=== PATIENT | male | born 1960 | race Caucasian/White ===

== ENCOUNTER 2019-07-07 06:00 | Outpatient (RCR) | payer OTHER, SELFPAY | END 2019-08-06 00:01 | LOC: APT 06:00 | PROVIDERS: Family Provider Nurse Practitioner; Visit Provider Orthopaedic Surgery | DX: Z47.1 Aftercare following joint replacement surgery (principal); Z96.641 Presence of right artificial hip joint | CPT/HCPCS: 97110 ×2; 97140 ×2 ==

== ENCOUNTER 2019-08-07 06:00 | Outpatient (RCR) | payer SELFPAY | END 2019-09-06 23:59 | disposition home or self-care (01) | LOC: APT 06:00 | PROVIDERS: Family Provider Nurse Practitioner; PCP Nurse Practitioner; Visit Provider Orthopaedic Surgery | DX: Z47.1 Aftercare following joint replacement surgery (principal); Z96.641 Presence of right artificial hip joint ==

== ENCOUNTER → 2019-08-26 10:58 | Outpatient (BNVA) | payer BC, SELFPAY | PROVIDERS: Family Provider Nurse Practitioner; PCP Nurse Practitioner; Visit Provider Orthopaedic Surgery | DX: Z48.89 Encounter for other specified surgical aftercare (principal); Z47.1 Aftercare following joint replacement surgery; Z96.641 Presence of right artificial hip joint; M19.90 Unspecified osteoarthritis, unspecified site; Z11.59 Encounter for screening for other viral diseases; Z79.899 Other long term (current) drug therapy; Z11.1 Encounter for screening for respiratory tuberculosis; M25.579 Pain in unspecified ankle and joints of unspecified foot; M79.10 Myalgia, unspecified site | CPT/HCPCS: 36415; 73502; 82085; 82652; 86480; 99204 ==

== ENCOUNTER → 2019-08-26 14:49 | Outpatient (BNVA) | payer BC, SELFPAY | PROVIDERS: Family Provider Nurse Practitioner; PCP Nurse Practitioner; Referring Provider Nurse Practitioner; Visit Provider Internal Medicine Rheumatology | DX: Z11.59 Encounter for screening for other viral diseases (principal); Z79.899 Other long term (current) drug therapy; M19.90 Unspecified osteoarthritis, unspecified site; M79.10 Myalgia, unspecified site | CPT/HCPCS: 85025 ==

== ENCOUNTER 2019-09-05 08:21 | Outpatient (CLI) | payer BC, SELFPAY ==
--- NOTE | 2019-09-05 08:28 | XR_ITS ---
WS: [id number] LEFT HAND: 3 VIEW(S) TECHNIQUE: PA, oblique and lateral. HISTORY: INFLAMMATORY ARTHRITIS COMPARISON: None available. No acute fracture or dislocation. Moderate joint space narrowing involving the third metacarpal phalangeal joint. Small erosions at the joint space. There is very slight subluxation at the third metacarpophalangeal joint. Mild narrowing of the interphalangeal joints. Erosions in the ulnar styloid. Mild narrowing of the distal radial ulnar joint. Narrowing of the radi ocarpal joint. Additional narrowing of the carpal rows. Widening of the scapholunate interval consistent with ligamentous tear or widening measures 5.7 mm. XR/XR hand LT min 3V* [id number] IMPRESSION: 1. Erosive changes and mild subluxation involving the third metacarpophalangea l joint suggesting inflammatory arthritis. 2. Additional distal ulnar styloid erosions. 3. Mild narrowing of the carpus articulations. 4. Scapholunate ligament tear.
--- NOTE | 2019-09-05 08:28 | XR_ITS ---
WS: [id number] RIGHT HAND: 3 VIEW(S) TECHNIQUE: PA, oblique and lateral. HISTORY: INFLAMMATORY ARTHRITIS COMPARISON: None available. No acute fracture or dislocation. Joint space narrowing with subluxations involving the second and third metatarsophalangeal joints. Hy pertrophic bone formation at the metatarsal heads and are also lucencies consistent with erosions and joint space narrowing. Additional mild joint space narrowing at the first metacarpal phalangeal join t and at the first IP joint. Mild narrowing at the proximal interphalangeal joints. Small erosion involving the ulnar styloid. Small erosions involving the scaphoid. XR/XR hand RT min 3V* [id number] IMPRESSION: 1. Joint space narrowing, subluxation and erosions involving the second and th ird metacarpal phalangeal joints, likely inflammatory arthropathy. Additional p roliferative bone formation which is not typically seen with rheumatoid. 2. Ulnar styloid and scaphoid erosions.
--- NOTE | 2019-09-05 08:28 | XR_ITS ---
WS: [id number] CHEST 2 VIEWS HISTORY: INFLAMMATORY ARTHRITIS COMPARISON: 05/16/2019 Lungs: Mild hyperinflation and changes of emphysema. Interstitial thickening is stable throughout bot h lungs. No mass or pulmonary nodule. Cardiac size: Normal. Mediastinum/Aorta: Mild atherosclerosis aorta. Bones: Normal. XR/XR chest 2V* [id number] IMPRESSION: 1. Mild chronic emphysema. 2. No acute cardiopulmonary disease.
--- NOTE | 2019-09-05 08:30 | XR_ITS ---
WS: [id number] LEFT FOOT: 3 VIEW(S) TECHNIQUE: PA, oblique and lateral. HISTORY: INFLAMMATORY ARTHRITIS COMPARISON: None available. No acute fracture or dislocation. Mild hallux valgus deformity. Small erosions involving the first metatarsal head. Mild narrowing of the first metatarsophalangeal j oint space. No additional metatarsal head erosions. Several hammertoe deformities. No subluxations. XR/XR foot LT min 3V* [id number] IMPRESSION: Small erosions involving the first metatarsophalangeal joint articular surfaces . Early changes of rheumatoid arthritis. Gout is also possible etiology. No sig nificant pannus.
--- NOTE | 2019-09-05 08:30 | XR_ITS ---
WS: [id number] RIGHT FOOT: 3 VIEW(S) TECHNIQUE: PA, oblique and lateral. HISTORY: INFLAMMATORY ARTHRITIS COMPARISON: None available. No acute fracture or dislocation. Small erosions along the medial head of the first metatarsal with mild narrowing of the joint space. No significant adjacent pannus. There is also a tiny erosion involving the lateral fifth metatarsal h ead. No significant subluxations. Mild hammer toe deformities. Small calcaneal spur. XR/XR foot RT min 3V* [id number] IMPRESSION: Erosions involving the first and fifth metatarsal heads, likely inflammatory ar thritis.
--- NOTE | 2019-09-05 08:30 | XR_ITS ---
WS: [id number] LEFT ANKLE: 3 VIEW(S) TECHNIQUE: AP, oblique(s) and lateral. HISTORY: INFLAMMATORY ARTHRITIS COMPARISON: None available. Mild narrowing of the tibiotalar joint space. No erosions or osteochondral lesions. No soft tissue edema. Moderate size calcaneal spur. No soft tissue abnormality. 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 No erosions.
--- NOTE | 2019-09-05 08:30 | XR_ITS ---
WS: [id number] RIGHT ANKLE: 3 VIEW(S) TECHNIQUE: AP, oblique(s) and lateral. HISTORY: INFLAMMATORY ARTHRITIS COMPARISON: None available. Normal anatomic alignment with no fracture or dislocation. Mild narrowing of the tibiotalar joint. Small well-corticated osseous densities distal to the medial malleolus. No erosions. Moderate size calcaneal spur. No soft tissue abnormality. XR/XR ankle RT min 3V* [id number] IMPRESSION: Mild osteoarthritis at the ankle.
== END 2019-09-05 08:22 | disposition home or self-care (01) ==
LOC: RADWPI 08:26
PROVIDERS: Family Provider Nurse Practitioner; PCP Nurse Practitioner; Visit Provider Internal Medicine Rheumatology
DX: M85.872 Other specified disorders of bone density and structure, left ankle and foot (principal); M85.871 Other specified disorders of bone density and structure, right ankle and foot; M19.072 Primary osteoarthritis, left ankle and foot; M19.071 Primary osteoarthritis, right ankle and foot; M85.841 Other specified disorders of bone density and structure, right hand; M85.842 Other specified disorders of bone density and structure, left hand; J43.9 Emphysema, unspecified; M19.90 Unspecified osteoarthritis, unspecified site; M79.10 Myalgia, unspecified site; Z11.59 Encounter for screening for other viral diseases; Z79.899 Other long term (current) drug therapy
CPT/HCPCS: 36415; 71046; 73130; 73610; 73630; 80076; 82306; 82550; 82565; 84439; 84443; 85651; 86140; 86431; 86704; 86706; 86803; 87340

== ENCOUNTER → 2019-09-05 09:12 | Outpatient (BNVA) | payer BC, SELFPAY | PROVIDERS: Family Provider Nurse Practitioner; PCP Nurse Practitioner; Visit Provider Internal Medicine Rheumatology | DX: M19.90 Unspecified osteoarthritis, unspecified site (principal); M79.10 Myalgia, unspecified site; Z79.899 Other long term (current) drug therapy | CPT/HCPCS: 85025 ==

== ENCOUNTER → 2019-09-09 10:54 | Outpatient (BNVA) | payer BC, SELFPAY | PROVIDERS: Family Provider Nurse Practitioner; PCP Nurse Practitioner; Visit Provider Internal Medicine Rheumatology | DX: M05.79 Rheumatoid arthritis with rheumatoid factor of multiple sites without organ or systems involvement (principal); Z79.899 Other long term (current) drug therapy; Z11.59 Encounter for screening for other viral diseases; R76.8 Other specified abnormal immunological findings in serum; M19.90 Unspecified osteoarthritis, unspecified site | CPT/HCPCS: 36415; 87517; 87522; 99214 ==

== ENCOUNTER → 2025-02-27 11:21 | Outpatient (BNVA) | payer MEDICARE, SELFPAY | PROVIDERS: Family Provider Nurse Practitioner; PCP Nurse Practitioner; Visit Provider Nurse Practitioner | DX: Z13.6 Encounter for screening for cardiovascular disorders (principal); E55.9 Vitamin D deficiency, unspecified; M05.79 Rheumatoid arthritis with rheumatoid factor of multiple sites without organ or systems involvement | CPT/HCPCS: 80053; 80061; 82306; 85025; 85651; 86140; 86431 ==

== ENCOUNTER → 2025-03-11 09:38 | Outpatient (BNVA) | payer MEDICARE, SELFPAY | PROVIDERS: Family Provider Nurse Practitioner; PCP Nurse Practitioner; Visit Provider Nurse Practitioner | DX: L03.313 Cellulitis of chest wall (principal) | CPT/HCPCS: 85025 ==